=== PATIENT | male | born 1965 | race Caucasian/White ===

== ENCOUNTER 2020-08-31 22:22 | Emergency (ER) | payer BC ==
[2020-09-01] MEDS ORDERED: LODINE CAP 300300 MG PO (01:07)
[2020-09-01] MEDS ORDERED: ZOFRAN ODT 4 MG4 MG PO (01:07)
[2020-09-01] MEDS ORDERED: VENTOLIN HFA 66.7 GM INH (01:07)
== END 2020-09-01 01:30 | disposition home or self-care (01) ==
LOC: ER1 22:22
DX: U07.1 COVID-19 (principal); F17.210 Nicotine dependence, cigarettes, uncomplicated; E78.5 Hyperlipidemia, unspecified; I10 Essential (primary) hypertension; Z88.1 Allergy status to other antibiotic agents
CPT/HCPCS: 0240U; 99284